=== PATIENT | male | born 1955 | race American Indian/Alaskan Native ===

== ENCOUNTER 2016-12-07 09:57 | Emergency (ER) | payer OTHER, MEDICARE ==
[2016-12-07 10:13] VITALS: BP 138/87
[2016-12-07] MEDS ORDERED: NORCO 5/325 PO ONE (12:18)
--- NOTE | 2016-12-07 12:49 | XRay Report ---
Chest 2 views. History: Chest pain after trauma. Findings: The heart and lungs reveal no acute or significant abnormality. The bony thorax is normal. Impression: No acute findings.
--- NOTE | 2016-12-07 13:10 | Emergency Department Report ---
ED Fall HPI - General Chief Complaint: Fall Stated Complaint: FALL Time Seen by Provider: 12/07/16 12:02 Source: patient Mode of arrival: Ambulatory - History of Present Illness Initial Comments: Patient comes into the ER today with multiple complaints following a fall down 6 stairs 4 days ago. Patient states that his right leg sometimes gives out on him due to a back problem and that he believes that's what caused him to fall. Patient thinks that he may have lost consciousness briefly. Patient does state that most of his pain currently is in his back, neck, hips. Patient does state that he skinned up his right elbow and right knee. Patient also saying that he has some left flank pain and is concerned because he had his left kidney removed a little over a year ago. Patient denies any hemoptysis, obvious hematuria, nosebleed, loose teeth. Patient believes that the pain has worsened with time. Patient has taken some [id number] ibuprofen with minimal relief. MD Complaint: fall - Related Data Previous Rx's Medication Instructions Recorded Last Taken Type Pantoprazole [Protonix TAB] 40 mg PO DAILY #30 tablet 08/13/15 Unknown Rx Cyclobenzaprine [Flexeril] 10 mg PO BID #20 tablet 12/07/16 Unknown Rx Naproxen [Naprosyn TAB] 500 mg PO BID #20 tablet 12/07/16 Unknown Rx traMADol [Ultram 50 MG tab] 50 mg PO Q4HR PRN #20 tablet 12/07/16 Unknown Rx Allergies Allergy/AdvReac Type Severity Reaction Status Date / Time Penicillins Allergy Itching Verified 07/30/15 16:22 ED Review of Systems ROS: Stated complaint: FALL Other details as noted in HPI Constitutional: denies: chills, fever Eyes: denies: eye pain, eye discharge, vision change ENT: denies: ear pain, throat pain, dental pain, epistaxis Respiratory: denies: cough, shortness of breath, SOB with exertion, SOB at rest , wheezing Cardiovascular: chest pain (left greater than right chest wall pain). denies: palpitations, edema Endocrine: no symptoms reported Gastrointestinal: abdominal pain. denies: nausea, diarrhea Genitourinary: denies: urgency, dysuria, hematuria, testicular pain Musculoskeletal: back pain. denies: joint swelling, arthralgia Skin: denies: rash, lesions Neurological: headache. denies: weakness, numbness, paresthesias Psychiatric: denies: anxiety, depression Hematological/Lymphatic: denies: easy bleeding, easy bruising ED Past Medical Hx - Past Medical History Previous Medical History?: Yes Hx Hypertension: No Hx Congestive Heart Failure: No Hx Diabetes: No Hx Renal Disease: (Left Kidney Abscess. Cr 2.0 ) Hx Kidney Stones: Yes (LT Renal stent 2 years ago) Hx Asthma: Yes (past history. Controlled-last inhaler use 5 years ago ) Hx COPD: No Additional medical history: Chronic back pain. Herniated disks. Kidney stones - Surgical History Past Surgical History?: Yes Hx Cholecystectomy: No Additional Surgical History: Lithotripsy for kidney stone on the left - Social History Smoking Status: Current Every Day Smoker Substance Use Type: Alcohol, Prescribed - Medications Home Medications: Home Medications Medication Instructions Recorded Confirmed Last Taken Type Pantoprazole [Protonix TAB] 40 mg PO DAILY #30 tablet 08/13/15 Unknown Rx Cyclobenzaprine [Flexeril] 10 mg PO BID #20 tablet 12/07/16 Unknown Rx Naproxen [Naprosyn TAB] 500 mg PO BID #20 tablet 12/07/16 Unknown Rx traMADol [Ultram 50 MG tab] 50 mg PO Q4HR PRN #20 tablet 12/07/16 Unknown Rx ED Physical Exam - General Limitations: No Limitations General appearance: alert, in no apparent distress - Head Head exam: Present: atraumatic, normocephalic, normal inspection - Eye Eye exam: Present: normal appearance, PERRL, EOMI. Absent: periorbital swelling , periorbital tenderness Pupils: Present: normal accommodation - ENT ENT exam: Present: normal exam, normal orophraynx, mucous membranes moist, TM's normal bilaterally, normal external ear exam - Neck Neck exam: Present: normal inspection, tenderness (bilateral neck tenderness to light palpation. Limited range of motion secondary to pain.). Absent: full ROM , lymphadenopathy - Respiratory Respiratory exam: Present: normal lung sounds bilaterally. Absent: respiratory distress, decreased breath sounds - Cardiovascular Cardiovascular Exam: Present: regular rate, normal rhythm. Absent: systolic murmur, diastolic murmur, rubs, gallop - GI/Abdominal GI/Abdominal exam: Present: soft, tenderness (left flank and the left upper and lower tenderness), normal bowel sounds, other (large well-healed scar on left lateral abdomen consistent with history of kidney removal) - Rectal Rectal exam: Present: deferred - Extremities Exam Extremities exam: Present: normal inspection, full ROM, tenderness (right anterior knee tenderness with scabbed over abrasion.), normal capillary refill, other (posterior elbow scabbed over abrasion, non-erythematous non-tender). Absent: pedal edema, joint swelling - Back Exam Back exam: Present: normal inspection, tenderness (bilateral lower paraspinal muscle tenderness), CVA tenderness (L), muscle spasm. Absent: full ROM ( Limited range of motion secondary to pain.) - Neurological Exam Neurological exam: Present: alert, oriented X3, CN II-XII intact, abnormal gait (limping secondary to pain) - Psychiatric Psychiatric exam: Present: normal affect, normal mood - Skin Skin exam: Present: warm, dry, intact, normal color. Absent: rash ED Course Vital Signs 12/07/16 12/07/16 12/07/16 10:10 12:26 14:02 Temperature 98.3 F Pulse Rate 53 L Respiratory 20 18 18 Rate Blood Pressure 138/87 O2 Sat by Pulse 99 99 Oximetry ED Medical Decision Making - Lab Data Lab Results 12/07/16 Range/Units 13:08 Urine Color Straw (Yellow) Urine Turbidity Clear (Clear) Urine pH 6.0 (5.0-7.0) Ur Specific [place] 1.011 (1.003-1.030) Urine Protein <15 mg/dl (Negative) mg/dL Urine Glucose (UA) Neg (Negative) mg/dL Urine Ketones Neg (Negative) mg/dL Urine Blood Neg (Negative) Urine Nitrite Neg (Negative) Urine Bilirubin Neg (Negative) Urine Urobilinogen < 2.0 (<2.0) mg/dL Ur Leukocyte Esterase Neg (Negative) Urine WBC (Auto) 4.0 (0.0-6.0) /HPF Urine RBC (Auto) 1.0 (0.0-6.0) /HPF U Epithel Cells (Auto) < 1.0 (0-13.0) /HPF - Radiology Data Radiology results: report reviewed Chest x-ray unremarkable. CT of the head is unremarkable. CT of the neck reveals multilevel degenerative changes with bone spurring noted mostly at C5/ C6. No acute fractures noted. CT of abdomen and pelvis without contrast does reveal 1 mm right kidney stone, multiple gallbladder stones, incidental diverticula without diverticulosis. No acute pathology noted. Multilevel lumbar degenerative changes with disc vacuuming consistent with disc etiology. - Medical Decision Making Patient is nontoxic and hemodynamically stable. Due to the mechanism of injury , CT imaging ordered and reviewed with patient and family in room. Patient does not have any hematuria noted on urinalysis. CT of the head is unremarkable. CT of the neck reveals multilevel degenerative changes without any acute pathology. CT of abdomen and pelvis without any acute injury, confirmation of known back issues with disc problems noted on CT. No acute spine pathology noted. Start patient on some medications for musculoskeletal- type injuries as well as refer patient to orthopedics for further evaluation of his chronic back problems. Patient is in agreement with treatment plan and patient is stable for discharge. Critical care attestation.: If time is entered above; I have spent that time in minutes in the direct care of this critically ill patient, excluding procedure time. ED Disposition Clinical Impression: Fall with injury, Multiple contusions, Neck pain, Back pain Disposition: TO HOME OR SELFCARE Is pt being admited?: No Condition: Good Instructions: Contusion in Adults (ED), Cervical Spine Strain (ED), Lumbar Disc Herniation (ED), Kidney Stones (ED), Degenerative Disc Disease (ED) Prescriptions: Cyclobenzaprine [Flexeril] 10 mg PO BID #20 tablet Naproxen [Naprosyn TAB] 500 mg PO BID #20 tablet traMADol [Ultram 50 MG tab] 50 mg PO Q4HR PRN #20 tablet PRN Reason: Pain Referrals: PRIMARY MD JOI [Primary Care Provider] - 3-5 Days MAURA LEMUS MD [Staff Physician] - 3-5 Days Time of Disposition: 14:27
--- NOTE | 2016-12-07 13:18 | Cat Scan Report ---
CT HEAD WITHOUT CONTRAST INDICATION: Head injury, LOC. COMPARISON: None similar. FINDINGS: Noncontrast head CT demonstrates normal ventricles and sulci without acute or recent infarct, hemorrhage, mass effect or midline shift. No abnormal extra-axial fluid collections. Posterior fossa structures and basilar cisterns appear within normal limits. Symmetric eye globes. Mild bilateral maxillary, frontoethmoid and left sphenoid sinus mucosal thickening. Somewhat small/hypoplastic frontal sinuses, right more than left. Clear mastoid air cells. Intact calvarium. Normal overlying scalp soft tissues. Few radiopaque dental material and missing teeth incidentally noted. CONCLUSION: No acute intracranial CT abnormality with mild sinusitis, as described. Thank you for the opportunity to participate in this patient's care.
--- NOTE | 2016-12-07 13:26 | Cat Scan Report ---
CT CERVICAL SPINE WITHOUT CONTRAST INDICATION: Neck pain, fall, injury. COMPARISON: None similar. FINDINGS: Noncontrast axial, sagittal and coronal CT reconstructions through the cervical spine demonstrate normal imaged posterior fossa. Streak artifact from few radiopaque dental material. Intact craniocervical articulation with normal dens, occipital condyles and anterior and posterior arches of C1. Cervical spine degenerative spurring noted with mild cervical kyphosis apex at C5. Assessment of the spinal canal itself compromised from C5 inferiorly due to artifact from shoulder soft tissues. Normal thyroid. Clear lung apices. On the obtained axial images: C2-C3 demonstrates partially calcified diffuse posterior disc bulge/osteophyte complex with ventral cord effacement as on axial image 65, series 2. AP cord caliber approximately 6 mm. C3-C4 suggests slight diffuse disc bulge. C4-C5 is unremarkable with AP cord caliber approximately 8 mm. C5-C6 demonstrates moderate disc narrowing with adjacent endplate irregularity and sclerosis, more so involving C5. Right more than left uncovertebral/lateral spurring moderately narrows right neural foramen as on axial image 103, series 2. Slight bilateral facet arthropathy. C6-C7 is unremarkable. C7-T1 demonstrates moderate right and slight left facet arthropathy. CONCLUSION: No acute cervical spine CT abnormality with multilevel degenerative changes, greatest at C5-C6, as described above. Please correlate. Thank you for the opportunity to participate in this patient's care.
[2016-12-07 13:30] LABS: Bilirubin,Urine NEG (Negative); Blood,Urine NEG (Negative); Ketones,Urine NEG (Negative); Leukocyte Esterase,Urine NEG (Negative); Nitrite,Urine NEG (Negative); Protein,Urine <15 mg/dL mg/dL (Negative); Urobilinogen,Urine < 2.0 mg/dL (<2.0)
--- NOTE | 2016-12-07 14:01 | Cat Scan Report ---
CT ABDOMEN AND PELVIS WITHOUT CONTRAST INDICATION: Left flank pain, fall, injury. COMPARISON: July 2015 FINDINGS: Noncontrast abdomen and pelvis CT performed. LUNG BASES: Stable borderline cardiomegaly. Anemia not excluded. Approximately 7 mm questionable vascular versus new nodular density partially imaged in the right middle lobe, axial image 1, series 3. Approximately 12 mm noncalcified lingular nodule may not not be included. Moderate nonspecific distal esophageal wall prominence/thickening, not excluded for gastroesophageal reflux and/or hiatal hernia, amongst others. ABDOMEN: Please note that sensitivity to detect small visceral lesions is limited due to the absence of intravenous or oral contrast. Tiny right hepatic calcified granuloma superiorly and multiple calcified gallstones with the largest approximately 2.5 cm again noted. Interval removal of extensively infected left kidney, left ureteral stent and large urinary bladder stone. Stable right kidney, including upper pole cysts measuring up to 2.7 cm and a tiny, 1 mm lower pole renal calculus, axial image 150. Pancreas, right adrenal, nonaneurysmal abdominal aorta with slight atherosclerotic ossification the menisci within normal limits. Left adrenal now not clearly identified. No ascites or significant adenopathy. Nonopacified GI tract evaluation limited, though grossly nonobstructive. Normal appendix. Usual colonic stool. Mild descending colon and proximal sigmoid diverticulosis. PELVIS: Rectosigmoid stool. Mildly enlarged prostate may be correlated for clinically and with PSA. Small prostatic calcification and few pelvic phleboliths. Grossly unremarkable non-opacified urinary bladder. No free fluid or significant adenopathy. Approximately 2 mm anterolisthesis of L4 over L5. Mid to lower lumbar disc degeneration with vacuum phenomenon. Multilevel lower thoracic spine degenerative spurring and disc degeneration also seen. CONCLUSION: 1. No acute CT abnormality with interval improvement/left nephrectomy since July 2015 and some other associated findings, as detailed above. 2. Nonspecific lower lung nodules, inadequately characterized/incompletely imaged. 3. Various other findings, including moderate distal esophageal thickening, cholelithiasis, old healed granulomatous disease, tiny nonobstructing right renal calculus, diverticulosis and multilevel lumbar spine degenerative changes, amongst others, as above. Thank you for the opportunity to participate in this patient's care.
== END 2016-12-07 14:39 | disposition home or self-care (01) ==
LOC: ED 09:57
DX: T14.8 Other injury of unspecified body region (principal); M54.2 Cervicalgia; M54.9 Dorsalgia, unspecified; J45.909 Unspecified asthma, uncomplicated; G89.29 Other chronic pain; F17.200 Nicotine dependence, unspecified, uncomplicated; Z88.0 Allergy status to penicillin; W10.9XXA Fall (on) (from) unspecified stairs and steps, initial encounter; Y93.89 Activity, other specified; Y99.9 Unspecified external cause status; Y92.89 Other specified places as the place of occurrence of the external cause
CPT/HCPCS: 70450; 71020; 72125; 74176; 81001; 99284

== ENCOUNTER 2021-09-26 12:22 | Emergency (ER) | payer MEDICARE ==
[2021-09-26 13:13] VITALS: BP 121/82
[2021-09-26 13:56] LABS: Bilirubin,Urine NEG (Negative); Blood,Urine NEG (Negative); Color,Urine Straw (Yellow); Protein,Urine <15 mg/dL mg/dL (Negative); Urobilinogen,Urine < 2.0 mg/dL (<2.0)
[2021-09-26 14:39] LABS: Basophils % (Auto) 0.9 % (0.0-1.8); Eosinophils # (Auto) 0.6 K/mm3 (0.0-0.4); Hematocrit 43.5 % (35.5-45.6); Hemoglobin 14.1 gm/dl (11.8-15.2); Lymphocytes # (Auto) 1.5 K/mm3 (1.2-5.4); Lymphocytes % (Auto) 33.4 % (13.4-35.0); Mean Corpuscular HGB Conc 32 % (32-34); Mean Corpuscular Volume 86 fl (84-94); Monocytes # (Auto) 0.5 K/mm3 (0.0-0.8); Monocytes % (Auto) 10.5 % (0.0-7.3); Platelet Count 150 K/mm3 (140-440); Red Blood Count 5.05 M/mm3 (3.65-5.03); Red Cell Distribution Width 15.6 % (13.2-15.2)
[2021-09-26 14:40] LABS: INR 0.9 (0.87-1.13); Partial Thromboplastin Time 25.8 Sec. (24.2-36.6)
[2021-09-26 15:07] LABS: Calcium 9.2 mg/dL (8.4-10.2)
--- NOTE | 2021-09-26 16:32 | Emergency Department Report ---
ED Male HPI - General Chief complaint: Urogenital-Male Stated complaint: ONE KIDNEY/BLEEDING OUT URINE Source: patient Mode of arrival: Ambulatory Limitations: No Limitations - History of Present Illness Initial comments: 66-year-old -[place] male with past medical history of renal insufficiency as well as having one kidney on the left side presents emerged department complaining of having bloody urine which she thinks is from a mechanical nature. There was an area where he had to urinate but there was no restroom so he states that he squeezes pain is very very tight around the tip and upon finally finding an area we can urinate then he released his hands and noticed some blood at the end of his urine with some burning towards the tip MD Complaint: dysuria -: Gradual Radiation: none Severity: mild Quality: burning Consistency: constant Improves with: none Worsens with: none new medication dysuria. denies: discharge, mass, nausea/vomiting, incontinence - Related Data Home Medications Medication Instructions Recorded Confirmed Last Taken Acetaminophen [Acetaminophen TAB] 500 mg PO Q6HR PRN 11/13/18 11/13/18 Unknown Albuterol Sulfate [Ventolin Hfa] 2 puff PO Q4-6H 11/13/18 11/13/18 Unknown AtorvaSTATin [Lipitor] 20 mg PO QHS 11/13/18 11/13/18 Unknown DULoxetine [Cymbalta] 30 mg PO DAILY 11/13/18 11/13/18 Unknown Ergocalciferol [Vitamin D2] 1 cap PO QWEEK 11/13/18 11/13/18 Unknown Ferrous Sulfate [Feosol 325 MG tab] 325 mg PO QDAY 11/13/18 11/13/18 Unknown Omeprazole 20 mg PO DAILY 11/13/18 11/13/18 Unknown Pregabalin [Lyrica] 50 mg PO TID 11/13/18 11/13/18 Unknown hydroCHLOROthiazide [HCTZ] 12.5 mg PO QDAY 11/13/18 11/13/18 Unknown tiZANidine [Zanaflex 4mg TAB] 4 mg PO BID 11/13/18 11/13/18 Unknown Previous Rx's Medication Instructions Recorded Last Taken Type Pantoprazole [Protonix TAB] 40 mg PO DAILY #30 tablet 08/13/15 Unknown Rx Cyclobenzaprine [Flexeril] 10 mg PO BID #20 tablet 12/07/16 Unknown Rx Naproxen [Naprosyn TAB] 500 mg PO BID #20 tablet 12/07/16 Unknown Rx traMADoL [Ultram 50 MG tab] 50 mg PO Q4HR PRN #20 tablet 12/07/16 Unknown Rx Nitrofurantoin Kimble/M-Cryst 100 mg PO Q12HR #14 capsule 09/26/21 Unknown Rx [Macrobid CAP] Allergies Allergy/AdvReac Type Severity Reaction Status Date / Time black pepper Allergy Itching Verified 08/28/21 10:01 Penicillins Allergy Itching Verified 08/28/21 10:01 ED Review of Systems ROS: Stated complaint: ONE KIDNEY/BLEEDING OUT URINE Other details as noted in HPI Comment: All other systems reviewed and negative ED Past Medical Hx - Past Medical History Previous Medical History?: Yes Hx Hypertension: No Hx Congestive Heart Failure: No Hx Diabetes: No Hx GERD: Yes Hx Renal Disease: (Left Kidney Abscess. Cr 2.0 ) Hx Kidney Stones: Yes (LT Renal stent 2 years ago) Hx Asthma: Yes (past history. Controlled-last inhaler use 5 years ago ) Hx COPD: No Additional medical history: Chronic back pain. Herniated disks. Kidney stones - Surgical History Past Surgical History?: Yes Hx Cholecystectomy: No Additional Surgical History: Left Nephrectomy - Social History Substance Use Type: None, Alcohol, Prescribed - Medications Home Medications: Home Medications Medication Instructions Recorded Confirmed Last Taken Type Pantoprazole [Protonix TAB] 40 mg PO DAILY #30 tablet 08/13/15 Unknown Rx Cyclobenzaprine [Flexeril] 10 mg PO BID #20 tablet 12/07/16 Unknown Rx Naproxen [Naprosyn TAB] 500 mg PO BID #20 tablet 12/07/16 Unknown Rx traMADoL [Ultram 50 MG tab] 50 mg PO Q4HR PRN #20 tablet 12/07/16 Unknown Rx Acetaminophen [Acetaminophen TAB] 500 mg PO Q6HR PRN 11/13/18 11/13/18 Unknown History Albuterol Sulfate [Ventolin Hfa] 2 puff PO Q4-6H 11/13/18 11/13/18 Unknown History AtorvaSTATin [Lipitor] 20 mg PO QHS 11/13/18 11/13/18 Unknown History DULoxetine [Cymbalta] 30 mg PO DAILY 11/13/18 11/13/18 Unknown History Ergocalciferol [Vitamin D2] 1 cap PO QWEEK 11/13/18 11/13/18 Unknown History Ferrous Sulfate [Feosol 325 MG tab] 325 mg PO QDAY 11/13/18 11/13/18 Unknown History Omeprazole 20 mg PO DAILY 11/13/18 11/13/18 Unknown History Pregabalin [Lyrica] 50 mg PO TID 11/13/18 11/13/18 Unknown History hydroCHLOROthiazide [HCTZ] 12.5 mg PO QDAY 11/13/18 11/13/18 Unknown History tiZANidine [Zanaflex 4mg TAB] 4 mg PO BID 11/13/18 11/13/18 Unknown History Nitrofurantoin Kim[place]/M-Cryst 100 mg PO Q12HR #14 capsule 09/26/21 Unknown Rx [Macrobid CAP] ED Physical Exam - General Limitations: No Limitations General appearance: alert, in no apparent distress - Head Head exam: Present: atraumatic, normocephalic - Eye Eye exam: Present: normal appearance, PERRL, EOMI Pupils: Present: normal accommodation - ENT ENT exam: Present: normal exam, normal orophraynx, mucous membranes moist, TM's normal bilaterally - Neck Neck exam: Present: normal inspection, full ROM - Respiratory Respiratory exam: Present: normal lung sounds bilaterally. Absent: respiratory distress - Cardiovascular Cardiovascular Exam: Present: regular rate, normal rhythm. Absent: systolic murmur, diastolic murmur, rubs, gallop - GI/Abdominal GI/Abdominal exam: Present: soft, normal bowel sounds - Rectal Rectal exam: Present: deferred - exam: Present: other (Clinically erythema at the tip of the urethra. Some redness noted.) - Extremities Exam Extremities exam: Present: normal inspection, normal capillary refill - Back Exam Back exam: Present: normal inspection. Absent: CVA tenderness (R), CVA tenderness (L) - Neurological Exam Neurological exam: Present: alert, oriented X3, CN II-XII intact - Psychiatric Psychiatric exam: Present: normal affect, normal mood - Skin Skin exam: Present: warm, dry, intact, normal color. Absent: rash ED Course Vital Signs 09/26/21 13:13 Temperature 98.3 F Pulse Rate 54 L Respiratory 18 Rate Blood Pressure 121/82 O2 Sat by Pulse 97 Oximetry ED Medical Decision Making - Lab Data Result diagrams: 09/26/21 13:39 09/26/21 13:39 Critical care attestation.: If time is entered above; I have spent that time in minutes in the direct care of this critically ill patient, excluding procedure time. ED Disposition Clinical Impression: Traumatic injury of urethra Disposition: HOME / SELF CARE / HOMELESS Is pt being admited?: No Does the pt Need Aspirin: No Condition: Stable Instructions: Urethritis, Adult Prescriptions: Nitrofurantoin [place]/M-Cryst [Macrobid CAP] 100 mg PO Q12HR #14 capsule Referrals: RANDAL ALCAZAR MD [Primary Care Provider] - 3-5 Days
== END 2021-09-26 16:53 | disposition home or self-care (01) ==
LOC: ED 12:22
DX: S37.30XA Unspecified injury of urethra, initial encounter (principal); K21.9 Gastro-esophageal reflux disease without esophagitis; N20.0 Calculus of kidney; J45.909 Unspecified asthma, uncomplicated; Z98.890 Other specified postprocedural states; X58.XXXA Exposure to other specified factors, initial encounter; Y93.89 Activity, other specified; Y92.89 Other specified places as the place of occurrence of the external cause; Y99.8 Other external cause status; Z88.0 Allergy status to penicillin; Z91.018 Allergy to other foods
CPT/HCPCS: 36415; 80048; 81001; 85025; 85610; 85730; 99283